=== PATIENT | male | born 1965 | race Caucasian/White ===

== ENCOUNTER 2021-01-28 20:31 | Emergency (ER) | payer OTHER, MEDICAID ==
[~2021-01-28] VITALS: Ht 170.2 cm; Wt 81.6 kg
--- NOTE | 2021-01-28 20:34 | NUR ---
Patient to ER bed 05 to gown for evaluation. Side rails up.
[2021-01-28 20:35] VITALS: BP_SYST 147
--- NOTE | 2021-01-28 20:39 | NUR ---
ER at bedside examining patient.
--- NOTE | 2021-01-28 20:40 | NUR ---
PD at bedside
[2021-01-28] MEDS ORDERED: DIPH-TET-PERTUS Vaccine 0.5 ML VIAL (ADACEL) I.M. ONE (20:45)
[2021-01-28] MEDS ORDERED: LIDOCAINE 1% 10 MG/ML, 20 ML MDV INJ ONE (20:45)
[2021-01-28] MEDS ORDERED: IBUPROFEN 800 MG TABLET PO ONE (20:45)
[2021-01-28] MEDS ORDERED: BACITRACIN 1 GM OINT TP ONE (20:45)
[2021-01-28] MEDS ORDERED: HYDROcodone/ACETAMIN 5-325 MG TAB (NORCO/ VICODIN) PO ONE (20:45)
--- NOTE | 2021-01-28 20:45 | NUR ---
of [facility] talking to ptPete
--- NOTE | 2021-01-28 20:47 | NUR ---
DR HASTINGS AT BEDSIDE SUTURING LACERATION. PT LAY WELL.
--- NOTE | 2021-01-28 21:07 | NUR ---
TO CT VIA WHEELCHAIR.
[2021-01-28 21:17] LABS: EOSINOPHILS # (AUTO) 0.2 K/uL (0.0-0.4); RED BLOOD CELL COUNT(AUTO) 4.61 MIL/uL (4.2-6.2)
[2021-01-28 21:22] LABS: BASOPHILS # (AUTO) 0.1 K/uL (0.0-0.2); BASOPHILS % (AUTO) 0.7 % (0.0-2.0); HEMATOCRIT 43.1 % (36-54); LYMPHOCYTES # (AUTO) 2.1 K/uL (1.0-5.5); LYMPHOCYTES % (AUTO) 26.4 % (20.5-51.5); MEAN CORPUSCULAR HEMOGLOBIN 33 pg (27-31); MEAN CORPUSCULAR HGB CONC 35 % (32-36); MEAN CORPUSCULAR VOLUME 93 fL (79.0-98.0); MONOCYTES # (AUTO) 0.6 K/uL (0.0-1.0); MONOCYTES % (AUTO) 7.9 % (1.7-9.3); NEUTROPHILS # (AUTO) 5.1 K/uL (1.8-7.7); PLATELET COUNT (AUTO) 145 K/uL (130-430); RED CELL DISTRIBUTION WIDTH 11.9 % (9.0-15.0); WHITE BLOOD COUNT (AUTO) 8.1 K/uL (4.8-10.8)
[2021-01-28 21:25] LABS: ALBUMIN 3.5 g/dL (3.4-4.8); CALCIUM 8.3 mg/dL (8.4-11.0); CREATININE 0.94 mg/dL (0.55-1.30); POTASSIUM 3.6 mmol/L (3.5-5.1); TOTAL BILIRUBIN 0.5 mg/dL (0.0-1.0)
[2021-01-28 21:55] VITALS: BP_SYST 147
--- NOTE | 2021-01-28 21:55 | NUR ---
Patient given written and verbal discharge instructions and verbalizes understanding. ER MD DR HASTINGS discussed with patient the results and treatment provided. Patient in stable condition. ID arm band removed. Patient educated on pain management and to follow up with PMD. Pain Scale . Opportunity for questions provided and answered. Medication side effect fact sheet provided.
== END 2021-01-28 21:55 | disposition home or self-care (01) ==
LOC: SED 20:31
DX: S01.112A Laceration without foreign body of left eyelid and periocular area, initial encounter (principal); F10.129 Alcohol abuse with intoxication, unspecified; I10 Essential (primary) hypertension; Y04.0XXA Assault by unarmed brawl or fight, initial encounter; Y93.89 Activity, other specified; Y92.89 Other specified places as the place of occurrence of the external cause; Y99.8 Other external cause status
CPT/HCPCS: 12013; 36415; 70450; 76376; 80053; 85025; 90471; 90715; 99284; J2001